=== PATIENT | male | born 1945 | race Caucasian/White ===

== ENCOUNTER 2018-01-03 08:14 | Inpatient (IN) | payer MEDICARE, BC ==
[2017-12-28 14:56] LABS: BASOPHILS % (AUTO) 0.6 % (0-1); EOSINOPHILS # (AUTO) 0.2 X10'3 (0-0.9); EOSINOPHILS % (AUTO) 3.6 % (0-6); LYMPHOCYTES # (AUTO) 1.5 X10'3 (1.1-4.8); LYMPHOCYTES % (AUTO) 22.8 % (21-51); MEAN CORPUSCULAR HEMOGLOBIN 32.9 PG (27.0-31.0); MEAN CORPUSCULAR HGB CONC 34.6 % (33.0-36.5); MEAN CORPUSCULAR VOLUME 95.1 FL (78-98); MEAN PLATELET VOLUME 8.6 FL (7.4-10.4); MONOCYTES # (AUTO) 0.6 X10'3 (0-0.9); MONOCYTES % (AUTO) 9.5 % (2-12); NEUTROPHILS # (AUTO) 4.2 X10'3 (1.8-7.7); NEUTROPHILS % (AUTO) 63.5 % (42-75); PRE OP HEMATOCRIT 43.2 % (42.0-52.0); PRE OP HEMOGLOBIN 14.9 g/dL (14.0-17.9); PRE OP PLATELET COUNT 172 X10'3 (140-440); RED BLOOD COUNT 4.54 X10'6 (4.70-6.10); RED CELL DISTRIBUTION WIDTH 13.7 % (11.5-14.5)
[2017-12-28 15:11] LABS: ALBUMIN 3.6 G/DL (3.4-5.0); ALBUMIN/GLOBULIN RATIO 1.1 (1.1-1.5); ALKALINE PHOSPHATASE 69 IU/L (46-116); BLOOD UREA NITROGEN 17 MG/DL (7-18); BUN/CREATININE RATIO 16.5 (5.4-32.0); CALCIUM 8.3 MG/DL (8.5-10.1); CHLORIDE 105 MMOL/L (99-107); CREATININE 1.03 MG/DL (0.60-1.10); PRE OP ALT 34 U/L (30-65); PRE OP ANION GAP 7 (8-16); PRE OP AST 22 U/L (10-37); PRE OP BILIRUB, TOTAL 0.4 MG/DL (0.0-1.0); PRE OP GLUCOSE 96 MG/DL (70-104); PRE OP POTASSIUM 3.7 MMOL/L (3.4-5.1); PRE OP SODIUM 143 MMOL/L (135-145); TOTAL CARBON DIOXIDE 31.3 MMOL/L (24-32); TOTAL PROTEIN 6.8 G/DL (6.4-8.2); eGFR 71 ML/MIN
[2017-12-28 15:17] LABS: CLARITY,URINE Clear (Clear); COLOR,URINE Yellow (Yellow); GLUCOSE, URINE Negative (Neg); KETONES,URINE Negative (Neg); LEUKOCYTE ESTERASE ,URINE Negative (Neg); NITRITES, URINE Negative (Neg); OCCULT BLOOD,URINE Negative (Neg); PROTEIN,URINE Negative (Neg); UROBILINOGEN,URINE 0.2 E.U/dL (0.2-1.0)
[2017-12-28 15:20] LABS: UA COLLECTION TYPE VOIDED
[2018-01-03] VITALS (18 sets, daily range): BP systolic 73–151; BP diastolic 47–102
[~2018-01-03] VITALS: Ht 185.4 cm; Wt 98.6 kg
[~2018-01-03 08:14] MED LIST: ATOR40TA PO; CARV-50 PO; DOCUMENT DATE & TIME OF BETA-BLOCKER PO ONE; FLO0.4C PO; LEVO25TA2 PO; POTA10TA10 PO; ROPIVAcaine 0.5% (5mg/ml) 30ml vial ONE; SACU1TAB7 PO; SPIR25TA3 PO; acetaminophen 325mg tablet PO ONE; cefazolin/dext.iso 2gm/50ml 50 ML IV ONE; celeCOXIB 100mg capsule PO ONE; cloNIDine hcl/PF 100mcg/ml inj ONE; epiNEPHrine 1 mg/ml inj ONE; famotidine 20mg tablet PO ONE; gabapentin 300mg capsule PO ONE; ketorolac trometh. 30mg/ml inj. ONE; metoclopramide 5 mg/ml inj IV ONE; oxyCODONE SR 10mg (sust. release) tab PO ONE; ringers solution, lacted 1,000 ML IV SCH; tranexamic acid inj. 1,000 MG in normal saline 100ml IV soln 90 ML IV ONE; vancomycin 1,000mg inj ONE; vancomycin inj 1,500 MG in normal saline 300ml IV soln IV ONE
[2018-01-03] MEDS ORDERED: metoclopramide 10mg tablet PO ONE (09:20)
[2018-01-03] MEDS ORDERED: AMLO1CAP9 PO (09:30)
[2018-01-03] MEDS: potassium cl 20mEq in 1/2 NS 1,000 ML IV SCH ×2 (09:43→18:09)
[2018-01-03] MEDS ORDERED: acetaminophen 325mg tablet PO PRN (09:45)
[2018-01-03] MEDS ORDERED: magnesium hydroxide 30ml (MOM) UD suspension PO PRN (09:45)
[2018-01-03] MEDS ORDERED: bisacodyl 10mg suppository rectal RC PRN (09:45)
[2018-01-03] MEDS ORDERED: diphenhydrAMINE 25mg capsule PO PRN ×2 (09:45)
[2018-01-03] MEDS ORDERED: HYDROmorphone 1 mg/ml syringe IV PRN ×2 (09:45)
[2018-01-03] MEDS ORDERED: ondansetron/PF 4mg/2ml inj IV PRN ×3 (09:45→11:00)
[2018-01-03] MEDS ORDERED: MORPHINE SULFATE/PF 0.5 MG/ML 10ML AMPUL ONE (09:56)
[2018-01-03] MEDS ORDERED: MIDAZolam 5mg/ml 2ml vial ONE (10:25)
[2018-01-03] MEDS ORDERED: propofol inj 20 ML IV ONE ×2 (10:25)
[2018-01-03] MEDS ORDERED: dexamethasone sod phosphate 4mg/ml inj. ONE (10:49)
[2018-01-03] MEDS ORDERED: BUPIVAcaine/PF 2.5 mg/ml (0.25%) 30ml vial ONE (10:49)
[2018-01-03] MEDS ORDERED: ringers solution, lacted 1,000 ML IV SCH (10:56)
[2018-01-03] MEDS ORDERED: naloxone 2mg/2ml inj 2 MG in normal saline 500ml IV soln 500 ML IV PRN (10:56)
[2018-01-03] MEDS ORDERED: diphenhydrAMINE 50 mg/ml inj IV PRN (11:00)
[2018-01-03] MEDS ORDERED: proCHLORperazine 10 MG/2 ml inj IV PRN (11:00)
[2018-01-03] MEDS ORDERED: meperidine/PF 50mg/ml syringe IV PRN ×3 (11:00)
[2018-01-03] MEDS ORDERED: morphine 2 MG/ML inj. syringe IV PRN ×2 (11:00)
[2018-01-03] MEDS: gabapentin 300mg capsule PO SCH ×2 (14:02→21:09)
[2018-01-03] MEDS: cefazolin/dext.iso 2gm/50ml 50 ML IV SCH ×2 (19:13→23:50)
[2018-01-03] MEDS: oxyCODONE/APAP 10/325mg tablet PO PRN (19:14)
[2018-01-03] MEDS: celeCOXIB 100mg capsule PO SCH (19:14)
[2018-01-03] MEDS: ascorbic acid 500mg tablet PO SCH (19:15)
[2018-01-03] MEDS: tamsulosin 0.4mg capsule PO SCH (19:15)
[2018-01-03] MEDS: carVEDilol 12.5mg tablet PO SCH (19:15)
[2018-01-03] MEDS: potassium Cl 20 mEq SR tablet PO SCH (20:00)
[2018-01-03] MEDS: sennosides 8.6mg tablet PO SCH (21:08)
[2018-01-03] MEDS: atorvastatin 20mg tablet PO SCH (21:08)
[2018-01-04 02:00] VITALS: BP 135/70
[2018-01-04] MEDS: potassium cl 20mEq in 1/2 NS 1,000 ML IV SCH ×3 (03:56→17:43)
[2018-01-04] MEDS: oxyCODONE/APAP 10/325mg tablet PO PRN ×5 (03:57→21:02)
[2018-01-04 05:00] VITALS: BP 144/77
[2018-01-04 05:37] LABS: ANION GAP 7 (8-16); CHLORIDE 105 MMOL/L (99-107); POTASSIUM 3.9 MMOL/L (3.5-5.1); SODIUM 141 MMOL/L (135-145); TOTAL CARBON DIOXIDE 29.1 MMOL/L (24-32)
[2018-01-04 05:39] LABS: BASOPHILS % (AUTO) 0.1 % (0-1); EOSINOPHILS # (AUTO) 0.1 X10'3 (0-0.9); EOSINOPHILS % (AUTO) 0.4 % (0-6); HEMATOCRIT 38.9 % (42.0-52.0); HEMOGLOBIN 13.4 g/dl (14.0-17.9); LYMPHOCYTES # (AUTO) 0.7 X10'3 (1.1-4.8); MEAN CORPUSCULAR HEMOGLOBIN 32.5 PG (27.0-31.0); MEAN CORPUSCULAR HGB CONC 34.4 % (33.0-36.5); MEAN CORPUSCULAR VOLUME 94.4 FL (78-98); MEAN PLATELET VOLUME 8.6 FL (7.4-10.4); MONOCYTES # (AUTO) 0.7 X10'3 (0-0.9); MONOCYTES % (AUTO) 5.9 % (2-12); NEUTROPHILS # (AUTO) 10.5 X10'3 (1.8-7.7); NEUTROPHILS % (AUTO) 87.6 % (42-75); PLATELET COUNT 158 X10'3 (140-440); RED BLOOD COUNT 4.12 X10'6 (4.70-6.10); RED CELL DISTRIBUTION WIDTH 13.5 % (11.5-14.5); WHITE BLOOD COUNT 11.9 X10'3 (4.5-11.0)
[2018-01-04] MEDS ORDERED: non-formulary drug (Amlodipine Besylate/Benazepril (Amlodipine-Benazepril 5-20 mg) 1 CAP) PO SCH (08:00)
[2018-01-04] MEDS: spironolactone 25 MG tablet PO SCH (08:32)
[2018-01-04] MEDS: celeCOXIB 100mg capsule PO SCH ×2 (08:32→21:01)
[2018-01-04] MEDS: lisinopril 20mg tablet PO SCH (08:33)
[2018-01-04] MEDS: potassium Cl 20 mEq SR tablet PO SCH ×2 (08:33→21:00)
[2018-01-04] MEDS: tamsulosin 0.4mg capsule PO SCH ×2 (08:33→21:01)
[2018-01-04] MEDS: gabapentin 300mg capsule PO SCH ×3 (08:33→21:00)
[2018-01-04] MEDS: amLODIPine 5mg tablet PO SCH (08:33)
[2018-01-04] MEDS: carVEDilol 12.5mg tablet PO SCH ×2 (08:33→21:00)
[2018-01-04] MEDS: multivitamins, therapeutics tablet PO SCH (08:34)
[2018-01-04] MEDS: ascorbic acid 500mg tablet PO SCH ×2 (08:34→21:00)
[2018-01-04] MEDS: aspirin 325mg tablet PO SCH (08:34)
[2018-01-04] MEDS: levoTHYROXINE 25mcg tablet PO SCH (08:43)
[2018-01-04 10:00] VITALS: BP 133/71
[2018-01-04 18:00] VITALS: BP 159/82
[2018-01-04] MEDS: atorvastatin 20mg tablet PO SCH (21:00)
[2018-01-04] MEDS: sennosides 8.6mg tablet PO SCH (21:01)
[2018-01-04 22:00] VITALS: BP 154/79
[2018-01-05] MEDS: potassium cl 20mEq in 1/2 NS 1,000 ML IV SCH (01:43)
[2018-01-05] MEDS: oxyCODONE/APAP 10/325mg tablet PO PRN ×2 (04:35→08:29)
[2018-01-05 05:00] VITALS: BP 146/73
[2018-01-05] MEDS ORDERED: ASPI-1 PO (06:25)
[2018-01-05 06:29] LABS: BASOPHILS % (AUTO) 0.2 % (0-1); EOSINOPHILS # (AUTO) 0.2 X10'3 (0-0.9); EOSINOPHILS % (AUTO) 2.1 % (0-6); MEAN CORPUSCULAR HEMOGLOBIN 32.6 PG (27.0-31.0); MEAN CORPUSCULAR HGB CONC 34.2 % (33.0-36.5); MEAN CORPUSCULAR VOLUME 95.4 FL (78-98); MONOCYTES # (AUTO) 1.1 X10'3 (0-0.9); MONOCYTES % (AUTO) 11.7 % (2-12); NEUTROPHILS # (AUTO) 7.2 X10'3 (1.8-7.7); PLATELET COUNT 143 X10'3 (140-440); RED BLOOD COUNT 3.67 X10'6 (4.70-6.10); RED CELL DISTRIBUTION WIDTH 13.3 % (11.5-14.5); WHITE BLOOD COUNT 9.5 X10'3 (4.5-11.0)
[2018-01-05] MEDS: spironolactone 25 MG tablet PO SCH (08:27)
[2018-01-05] MEDS: levoTHYROXINE 25mcg tablet PO SCH (08:28)
[2018-01-05] MEDS: lisinopril 20mg tablet PO SCH (08:28)
[2018-01-05] MEDS: multivitamins, therapeutics tablet PO SCH (08:28)
[2018-01-05] MEDS: tamsulosin 0.4mg capsule PO SCH (08:28)
[2018-01-05] MEDS: carVEDilol 12.5mg tablet PO SCH (08:28)
[2018-01-05] MEDS: aspirin 325mg tablet PO SCH (08:28)
[2018-01-05] MEDS: amLODIPine 5mg tablet PO SCH (08:28)
[2018-01-05] MEDS: ascorbic acid 500mg tablet PO SCH (08:28)
[2018-01-05] MEDS: celeCOXIB 100mg capsule PO SCH (08:28)
[2018-01-05] MEDS: gabapentin 300mg capsule PO SCH (08:29)
[2018-01-05] MEDS: potassium Cl 20 mEq SR tablet PO SCH (08:29)
== END 2018-01-05 09:45 | disposition home or self-care (01) | DRG 470 ==
LOC: PAS IN 08:14 → EDSTATUS 10:15 → ORTHO 4S 13:15
PROVIDERS: ADMIT Orthopaedic Surgery; ATTEND Orthopaedic Surgery
PROC: 3E0T3BZ Introduction of Anesthetic Agent into Peripheral Nerves and Plexi, Percutaneous Approach (ICD-10-PCS; 2018-01-03)
PROC: 0SRD0J9 Replacement of Left Knee Joint with Synthetic Substitute, Cemented, Open Approach (ICD-10-PCS; principal; 2018-01-03 09:46)
DX: M17.0 Bilateral primary osteoarthritis of knee (principal); D62 Acute posthemorrhagic anemia; E03.9 Hypothyroidism, unspecified; M70.62 Trochanteric bursitis, left hip; M76.891 Other specified enthesopathies of right lower limb, excluding foot; E78.5 Hyperlipidemia, unspecified; I10 Essential (primary) hypertension; N40.0 Benign prostatic hyperplasia without lower urinary tract symptoms; Z79.899 Other long term (current) drug therapy
CPT/HCPCS: 36415; 71046; 73560; 80051; 80053; 81003; 84443; 85025; 86885; 86900; 86901; 87070; 97116; 97161; 97530; A6455; A7000; C1713; C1758; C1776; J0171; J0690; J0735; J1100; J1885; J2250; J2274; J2405; J2704; J2795; J3370; J3490; J7030; J7120; J8597

== ENCOUNTER 2018-10-07 04:53 | Inpatient (IN) | payer MEDICARE, BC ==
[2018-10-07] VITALS (14 sets, daily range): BP systolic 109–184; BP diastolic 51–104
[~2018-10-07] VITALS: Ht 185.4 cm; Wt 98.0 kg
[~2018-10-07 04:53] MED LIST changes: +AMLO1CAP9 PO; +ASPI-1 PO; -DOCUMENT DATE & TIME OF BETA-BLOCKER PO ONE; -ROPIVAcaine 0.5% (5mg/ml) 30ml vial ONE; -SACU1TAB7 PO; -SPIR25TA3 PO; +SPIR25TA5 PO; -acetaminophen 325mg tablet PO ONE; -cefazolin/dext.iso 2gm/50ml 50 ML IV ONE; -celeCOXIB 100mg capsule PO ONE; -cloNIDine hcl/PF 100mcg/ml inj ONE; -epiNEPHrine 1 mg/ml inj ONE; -famotidine 20mg tablet PO ONE; -gabapentin 300mg capsule PO ONE; -ketorolac trometh. 30mg/ml inj. ONE; -metoclopramide 5 mg/ml inj IV ONE; -oxyCODONE SR 10mg (sust. release) tab PO ONE; -ringers solution, lacted 1,000 ML IV SCH; -tranexamic acid inj. 1,000 MG in normal saline 100ml IV soln 90 ML IV ONE; -vancomycin 1,000mg inj ONE; -vancomycin inj 1,500 MG in normal saline 300ml IV soln IV ONE
[2018-10-07 05:31] LABS: BASOPHILS % (AUTO) 0.1 % (0-1); EOSINOPHILS % (AUTO) 0.1 % (0-6); HEMATOCRIT 47.2 % (42.0-52.0); HEMOGLOBIN 15.9 g/dl (14.0-17.9); LYMPHOCYTES # (AUTO) 0.8 X10'3 (1.1-4.8); LYMPHOCYTES % (AUTO) 5.3 % (21-51); MEAN CORPUSCULAR HEMOGLOBIN 31.9 PG (27.0-31.0); MEAN CORPUSCULAR HGB CONC 33.7 % (33.0-36.5); MEAN CORPUSCULAR VOLUME 94.9 FL (78-98); MEAN PLATELET VOLUME 8.2 FL (7.4-10.4); MONOCYTES # (AUTO) 1.4 X10'3 (0-0.9); MONOCYTES % (AUTO) 9.7 % (2-12); NEUTROPHILS # (AUTO) 12.3 X10'3 (1.8-7.7); NEUTROPHILS % (AUTO) 84.8 % (42-75); PLATELET COUNT 192 X10'3 (140-440); RED BLOOD COUNT 4.97 X10'6 (4.70-6.10); RED CELL DISTRIBUTION WIDTH 13.2 % (11.5-14.5); WHITE BLOOD COUNT 14.5 X10'3 (4.5-11.0)
[2018-10-07] MEDS ORDERED: normal saline 1000ML IV soln IVB ONE (05:45)
[2018-10-07 05:48] LABS: ALANINE AMINOTRANSFERASE 52 U/L (12-78); ALBUMIN 3.4 G/DL (3.4-5.0); ALBUMIN/GLOBULIN RATIO 0.9 (1.1-1.5); ALKALINE PHOSPHATASE 72 IU/L (46-116); ANION GAP 10 (8-16); ASPARTATE AMINO TRANSFERASE 31 U/L (10-37); BILIRUBIN,TOTAL 1.1 MG/DL (0.1-1.0); BLOOD UREA NITROGEN 9 MG/DL (7-18); BUN/CREATININE RATIO 8.8 (5.4-32.0); CALCIUM 8.5 MG/DL (8.5-10.1); CHLORIDE 101 MMOL/L (99-107); CREATININE 1.02 MG/DL (0.60-1.10); GLUCOSE 143 MG/DL (70-104); POTASSIUM 3.3 MMOL/L (3.5-5.1); SODIUM 139 MMOL/L (135-145); TOTAL CARBON DIOXIDE 28.4 MMOL/L (24-32); eGFR 71 ML/MIN
[2018-10-07 05:49] LABS: INR 1.1 INR; PROTHROMBIN TIME 11.4 SECONDS (9.0-12.0)
[2018-10-07] MEDS ORDERED: potassium 10mEq/100ml NS w/LIDOcaine (10mg/bag) IV ONE (07:10)
[2018-10-07] MEDS ORDERED: piperacillin/tazo 3.375gm/50ml 50 ML IV ONE (07:10)
[2018-10-07] MEDS ORDERED: sincalide inj 2 MCG in normal saline 50ml IV soln 50 ML IV ONE (07:10)
[2018-10-07] MEDS ORDERED: potassium Cl 40MEQ/NS 500ml 500 ML IV PRN ×2 (08:40)
[2018-10-07] MEDS ORDERED: ondansetron/PF 4mg/2ml inj IV PRN ×3 (08:40→19:15)
[2018-10-07] MEDS ORDERED: HYDROcodone/acetaminophen 5mg/325mg tablet PO PRN (08:40)
[2018-10-07] MEDS ORDERED: morphine 2 MG/ML inj. syringe IV PRN (08:40)
[2018-10-07] MEDS ORDERED: magnesium hydroxide 30ml (MOM) UD suspension PO PRN (08:40)
[2018-10-07] MEDS ORDERED: HYDROcodone/acetaminophen 10/325mg tab PO PRN ×2 (08:40→19:15)
[2018-10-07] MEDS ORDERED: sincalide inj 0 MCG in normal saline 50ml IV soln 50 ML IV ONE (08:40)
[2018-10-07] MEDS ORDERED: acetaminophen 325mg tablet PO PRN ×2 (08:40)
[2018-10-07] MEDS ORDERED: magnesium Cl slow-release 64mg tablet PO PRN (08:40)
[2018-10-07] MEDS ORDERED: potassium Cl 20 mEq SR tablet PO PRN ×2 (08:40)
[2018-10-07] MEDS ORDERED: magnesium 4gm in 100ml NS 100 ML IV PRN (08:40)
[2018-10-07] MEDS ORDERED: mag hydrox/Alum hydrox/simeth 30ml oral suspension PO PRN (08:40)
[2018-10-07] MEDS: normal saline 1000ml 1,000 ML IV SCH ×3 (09:06→20:59)
[2018-10-07 09:51] LABS: CLARITY,URINE CLEAR (Clear); COLOR,URINE YELLOW (Yellow); GLUCOSE, URINE NEGATIVE (Neg); KETONES,URINE NEGATIVE (Neg); LEUKOCYTE ESTERASE ,URINE NEGATIVE (Neg); NITRITES, URINE NEGATIVE (Neg); OCCULT BLOOD,URINE NEGATIVE (Neg); PH,URINE 6.5 (4.8-8.0); PROTEIN,URINE NEGATIVE (Neg); UROBILINOGEN,URINE 0.2 E.U/dL (0.2-1.0)
[2018-10-07 09:52] LABS: UA COLLECTION TYPE CLN CATCH MIDSTREAM
[2018-10-07] MEDS: piperacillin/tazo 3.375gm/50ml 50 ML IV SCH ×2 (16:14→20:45)
[2018-10-07] MEDS ORDERED: BUPIVAcaine/PF 2.5mg/ml (0.25%) 10ml vial ONE (17:08)
[2018-10-07] MEDS ORDERED: sevoflurane 250ml liquid IH ONE (17:47)
[2018-10-07] MEDS ORDERED: metoprolol tartrate 1mg/ml inj IV ONE (17:47)
[2018-10-07] MEDS ORDERED: dexamethasone sod phosphate 10mg/ml inj ONE (17:47)
[2018-10-07] MEDS ORDERED: ringers solution, lacted 1,000 ML IV SCH (17:52)
[2018-10-07] MEDS ORDERED: fentaNYL/PF 50MCG/1 ML 2ML syringe ONE (17:54)
[2018-10-07] MEDS ORDERED: midazolam 2 mg/2 ml injection ONE (17:54)
[2018-10-07] MEDS ORDERED: meperidine/PF 25mg/ml syringe IV PRN ×3 (17:55)
[2018-10-07] MEDS ORDERED: proCHLORperazine 10 MG/2 ml inj IV PRN (17:55)
[2018-10-07] MEDS ORDERED: morphine 4 MG/ML inj SYRINge IV PRN ×2 (17:55)
[2018-10-07] MEDS ORDERED: LIDOcaine 2% (20mg/ml) 5ml vial ONE (17:56)
[2018-10-07] MEDS ORDERED: propofol inj 20 ML IV ONE (17:56)
[2018-10-07] MEDS ORDERED: rocuronium 10mg/ml inj IV ONE (17:58)
[2018-10-07] MEDS ORDERED: ondansetron/PF 4mg/2ml inj ONE (18:04)
[2018-10-07] MEDS ORDERED: ketorolac trometh. 30mg/ml inj. ONE (18:05)
[2018-10-07] MEDS ORDERED: enalaprilat dihydrate 2.5mg/2ml vial IV ONE (19:30)
[2018-10-07] MEDS: morphine 2 MG/ML inj. syringe IV PRN (20:29)
[2018-10-07] MEDS: atorvastatin 20mg tablet PO SCH (21:54)
[2018-10-07] MEDS: potassium Cl 20 mEq SR tablet PO SCH (21:55)
[2018-10-08] VITALS: BP 146/89
[2018-10-08] MEDS: morphine 2 MG/ML inj. syringe IV PRN ×2 (00:28→04:48)
[2018-10-08] MEDS: piperacillin/tazo 3.375gm/50ml 50 ML IV SCH ×3 (03:09→13:04)
[2018-10-08 04:30] VITALS: BP 158/99
[2018-10-08 05:27] LABS: BASOPHILS % (AUTO) 0 % (0-1); EOSINOPHILS % (AUTO) 0 % (0-6); HEMATOCRIT 43.7 % (42.0-52.0); HEMOGLOBIN 14.4 g/dl (14.0-17.9); LYMPHOCYTES # (AUTO) 0.5 X10'3 (1.1-4.8); LYMPHOCYTES % (AUTO) 3.9 % (21-51); MEAN CORPUSCULAR HEMOGLOBIN 31.4 PG (27.0-31.0); MEAN CORPUSCULAR HGB CONC 32.9 % (33.0-36.5); MEAN CORPUSCULAR VOLUME 95.3 FL (78-98); MEAN PLATELET VOLUME 8.9 FL (7.4-10.4); MONOCYTES # (AUTO) 0.5 X10'3 (0-0.9); MONOCYTES % (AUTO) 4.2 % (2-12); NEUTROPHILS # (AUTO) 11.1 X10'3 (1.8-7.7); NEUTROPHILS % (AUTO) 91.9 % (42-75); PLATELET COUNT 166 X10'3 (140-440); RED BLOOD COUNT 4.59 X10'6 (4.70-6.10); RED CELL DISTRIBUTION WIDTH 13.4 % (11.5-14.5); WHITE BLOOD COUNT 12.1 X10'3 (4.5-11.0)
[2018-10-08 05:29] LABS: ALANINE AMINOTRANSFERASE 90 U/L (12-78); ALBUMIN 2.8 G/DL (3.4-5.0); ALBUMIN/GLOBULIN RATIO 0.8 (1.1-1.5); ALKALINE PHOSPHATASE 58 IU/L (46-116); ANION GAP 10 (8-16); ASPARTATE AMINO TRANSFERASE 71 U/L (10-37); BILIRUBIN,TOTAL 0.8 MG/DL (0.1-1.0); BLOOD UREA NITROGEN 13 MG/DL (7-18); BUN/CREATININE RATIO 14.6 (5.4-32.0); CALCIUM 7.9 MG/DL (8.5-10.1); CHLORIDE 105 MMOL/L (99-107); CREATININE 0.89 MG/DL (0.60-1.10); GLUCOSE 122 MG/DL (70-104); MAGNESIUM 2.1 MG/DL (1.5-2.4); POTASSIUM 3.3 MMOL/L (3.5-5.1); SODIUM 143 MMOL/L (135-145); TOTAL CARBON DIOXIDE 27.8 MMOL/L (24-32); TOTAL PROTEIN 6.4 G/DL (6.4-8.2); eGFR 84 ML/MIN
[2018-10-08 07:30] VITALS: BP 160/83
[2018-10-08] MEDS: K and/or MAG REPLACEMENT MC SCH (08:00)
[2018-10-08] MEDS ORDERED: lisinopril 20mg tablet PO SCH (08:00)
[2018-10-08] MEDS: amLODIPine 5mg tablet PO SCH (08:51)
[2018-10-08] MEDS: spironolactone 25 MG tablet PO SCH (08:51)
[2018-10-08] MEDS: potassium Cl 20 mEq SR tablet PO SCH ×2 (08:51→19:56)
[2018-10-08] MEDS: levoTHYROXINE 25mcg tablet PO SCH (08:52)
[2018-10-08] MEDS: carVEDilol 12.5mg tablet PO SCH ×2 (08:52→19:56)
[2018-10-08] MEDS: tamsulosin 0.4mg capsule PO SCH ×2 (08:52→19:58)
[2018-10-08 11:00] VITALS: BP 168/90
[2018-10-08] MEDS: normal saline 1000ml 1,000 ML IV SCH (13:00)
[2018-10-08] MEDS: potassium cl 20mEq in 1/2 NS 1,000 ML IV SCH (19:38)
[2018-10-08] MEDS: levoFLOXACIN-Levaquin 500mg/D5 100 ML IV SCH (19:47)
[2018-10-08] MEDS: lisinopril 20mg tablet PO SCH (19:57)
[2018-10-08] MEDS: lactobacillus rhamnosus 10,000 MMU CELLS/CAPSULE PO SCH (19:58)
[2018-10-08 20:00] VITALS: BP 174/89
[2018-10-08 21:30] VITALS: BP 161/78
[2018-10-08] MEDS: atorvastatin 20mg tablet PO SCH (21:31)
[2018-10-08] MEDS: magnesium hydroxide 30ml (MOM) UD suspension PO SCH (22:28)
[2018-10-09] VITALS: BP 104/59
[2018-10-09 05:18] LABS: ALANINE AMINOTRANSFERASE 69 U/L (12-78); ALBUMIN 2.5 G/DL (3.4-5.0); ALBUMIN/GLOBULIN RATIO 0.7 (1.1-1.5); ALKALINE PHOSPHATASE 47 IU/L (46-116); ANION GAP 7 (8-16); ASPARTATE AMINO TRANSFERASE 38 U/L (10-37); BILIRUBIN,TOTAL 0.5 MG/DL (0.1-1.0); BLOOD UREA NITROGEN 12 MG/DL (7-18); BUN/CREATININE RATIO 14.3 (5.4-32.0); CHLORIDE 106 MMOL/L (99-107); CREATININE 0.84 MG/DL (0.60-1.10); GLUCOSE 108 MG/DL (70-104); MAGNESIUM 2.1 MG/DL (1.5-2.4); POTASSIUM 3.3 MMOL/L (3.5-5.1); SODIUM 142 MMOL/L (135-145); TOTAL CARBON DIOXIDE 29.3 MMOL/L (24-32); TOTAL PROTEIN 6.2 G/DL (6.4-8.2); eGFR 89 ML/MIN
[2018-10-09 07:40] VITALS: BP 168/87
[2018-10-09] MEDS: amLODIPine 5mg tablet PO SCH (07:45)
[2018-10-09] MEDS: spironolactone 25 MG tablet PO SCH (07:45)
[2018-10-09] MEDS: tamsulosin 0.4mg capsule PO SCH (07:45)
[2018-10-09] MEDS: carVEDilol 12.5mg tablet PO SCH (07:45)
[2018-10-09] MEDS: lactobacillus rhamnosus 10,000 MMU CELLS/CAPSULE PO SCH (07:45)
[2018-10-09] MEDS: levoTHYROXINE 25mcg tablet PO SCH (07:45)
[2018-10-09] MEDS: potassium Cl 20 mEq SR tablet PO SCH (07:46)
[2018-10-09] MEDS: lisinopril 20mg tablet PO SCH (07:46)
[2018-10-09] MEDS: levoFLOXACIN-Levaquin 500mg/D5 100 ML IV SCH (07:46)
[2018-10-09] MEDS: magnesium hydroxide 30ml (MOM) UD suspension PO SCH (07:46)
[2018-10-09] MEDS: K and/or MAG REPLACEMENT MC SCH (08:00)
[2018-10-09] MEDS: potassium cl 20mEq in 1/2 NS 1,000 ML IV SCH (08:18)
[2018-10-09 12:00] VITALS: BP 154/86
[2018-10-09] MEDS ORDERED: HYDR-4383 PO (12:59)
[2018-10-09] MEDS ORDERED: DOCU-28 PO (12:59)
[2018-10-09] MEDS ORDERED: LEVO500T2 PO (12:59)
== END 2018-10-09 15:00 | disposition home or self-care (01) | DRG 418 ==
LOC: ER 04:54 → ED HOLD 08:40 → EDBEDREQTM 09:13 → SUR 3N 10:56 → PACU 17:30 → SUR 3N 20:00
PROVIDERS: ADMIT Hospitalist; ATTEND Internal Medicine
PROC: 0WQF0ZZ Repair Abdominal Wall, Open Approach (ICD-10-PCS; 2018-10-07)
PROC: CF141ZZ Planar Nuclear Medicine Imaging of Gallbladder using Technetium 99m (Tc-99m) (ICD-10-PCS; 2018-10-07)
PROC: 0FT44ZZ Resection of Gallbladder, Percutaneous Endoscopic Approach (ICD-10-PCS; principal; 2018-10-07 17:47)
DX: K81.0 Acute cholecystitis (principal); K83.09 Other cholangitis; K42.9 Umbilical hernia without obstruction or gangrene; E03.9 Hypothyroidism, unspecified; E78.5 Hyperlipidemia, unspecified; E87.6 Hypokalemia; I10 Essential (primary) hypertension; N40.0 Benign prostatic hyperplasia without lower urinary tract symptoms; Z96.659 Presence of unspecified artificial knee joint; E66.9 Obesity, unspecified; Z79.899 Other long term (current) drug therapy; Z79.82 Long term (current) use of aspirin; Z68.28 Body mass index [BMI] 28.0-28.9, adult
CPT/HCPCS: 36415; 74018; 76700; 78226; 80053; 81003; 83605; 83735; 85025; 85610; 87040; 87070; 88302; 88304; 93005; 96360; 99285; A6251; A7000; A9537; G0378; J0690; J1100; J1885; J1956; J2001; J2250; J2270; J2405; J2543; J2704; J2805; J3010; J3480; J3490; J7030; J7040; J7120

== ENCOUNTER 2021-12-14 07:02 | Day surgery (SDC) | payer MEDICARE, BC ==
[2021-12-09 11:19] LABS: BASOPHILS % (AUTO) 0.7 % (0-1); EOSINOPHILS # (AUTO) 0.3 X10'3 (0-0.9); EOSINOPHILS % (AUTO) 6.3 % (0-6); LYMPHOCYTES # (AUTO) 0.5 X10'3 (1.1-4.8); LYMPHOCYTES % (AUTO) 10.6 % (21-51); MEAN CORPUSCULAR HEMOGLOBIN 32.6 PG (27.0-31.0); MEAN CORPUSCULAR HGB CONC 33.5 g/dL (33.0-36.5); MEAN CORPUSCULAR VOLUME 97.2 FL (78-98); MEAN PLATELET VOLUME 8.8 FL (7.4-10.4); MONOCYTES # (AUTO) 0.6 X10'3 (0-0.9); MONOCYTES % (AUTO) 10.6 % (2-12); NEUTROPHILS # (AUTO) 3.7 X10'3 (1.8-7.7); NEUTROPHILS % (AUTO) 71.8 % (42-75); PRE OP HEMATOCRIT 42.3 % (42.0-52.0); PRE OP HEMOGLOBIN 14.2 g/dL (14.0-17.9); PRE OP PLATELET COUNT 167 X10'3 (140-440); RED BLOOD COUNT 4.35 X10'6 (4.70-6.10); RED CELL DISTRIBUTION WIDTH 13.5 % (11.5-14.5)
[2021-12-09 11:49] LABS: ALBUMIN 3.6 G/DL (3.4-5.0); ALBUMIN/GLOBULIN RATIO 1.2 (1.1-1.5); ALKALINE PHOSPHATASE 48 IU/L (46-116); BLOOD UREA NITROGEN 20 MG/DL (7-18); BUN/CREATININE RATIO 16.3 (5.4-32.0); CALCIUM 9.1 MG/DL (8.5-10.1); CHLORIDE 106 MMOL/L (99-107); CREATININE 1.23 MG/DL (0.60-1.10); PRE OP ALT 29 U/L (30-65); PRE OP ANION GAP 7 (8-16); PRE OP AST 27 U/L (10-37); PRE OP BILIRUB, TOTAL 0.6 MG/DL (0.0-1.0); PRE OP GLUCOSE 79 MG/DL (70-104); PRE OP POTASSIUM 3.8 MMOL/L (3.4-5.1); PRE OP SODIUM 144 MMOL/L (135-145); TOTAL CARBON DIOXIDE 31.5 MMOL/L (24-32); TOTAL PROTEIN 6.5 G/DL (6.4-8.2); eGFR 57 ML/MIN
[2021-12-14] VITALS (20 sets, daily range): BP systolic 127–149; BP diastolic 80–95
[~2021-12-14] VITALS: Ht 185.4 cm; Wt 93.3 kg
[~2021-12-14 07:02] MED LIST changes: -AMLO1CAP9 PO; -ASPI-1 PO; +BUPIVAcaine/PF 2.5mg/ml (0.25%) 10ml vial ONE; +CALC200T PO; +DILT180C89 PO; +DOCUMENT DATE & TIME OF BETA-BLOCKER PO ONE; +ERGO400C PO; +LIDOcaine 1% 30ml preserv. free vial ONE; +MULT-227 PO; +OLME40TA13 PO; +OMEG-79 PO; +POTA-188 PO; -POTA10TA10 PO; +SAW450CA7 PO; +cefazolin/dext.iso 2gm/50ml IV ONE; +famotidine 20mg tablet PO ONE; +ringers solution, lacted 1,000 ML IV SCH
[2021-12-14] MEDS ORDERED: fentaNYL/PF 50MCG/1 ML 2ML syringe ONE (09:42)
[2021-12-14] MEDS ORDERED: midazolam 1 mg/ML 2ml injection ONE (09:42)
[2021-12-14] MEDS ORDERED: propofol inj 20 ML IV ONE (09:44)
[2021-12-14] MEDS ORDERED: proCHLORperazine 10 MG/2 ml inj IV PRN (10:25)
[2021-12-14] MEDS ORDERED: meperidine/PF 25mg/ml syringe IV PRN ×3 (10:25)
[2021-12-14] MEDS ORDERED: ondansetron/PF 4mg/2ml inj IV PRN (10:25)
[2021-12-14] MEDS ORDERED: morphine 2 MG/ML inj. syringe IV PRN (10:25)
[2021-12-14] MEDS ORDERED: ringers solution, lacted 1,000 ML IV SCH (10:25)
[2021-12-14] MEDS ORDERED: morphine 4 MG/ML inj SYRINge IV PRN (10:25)
[2021-12-14] MEDS ORDERED: ondansetron/PF 4mg/2ml inj ONE (11:03)
[2021-12-14] MEDS ORDERED: neostigmine methylsulfate 1 MG/ML 10ml vial ONE (11:03)
[2021-12-14] MEDS ORDERED: glycopyrrolate 0.2mg/ml inj ONE (11:03)
[2021-12-14] MEDS ORDERED: rocuronium 10mg/ml inj IV ONE (11:03)
[2021-12-14] MEDS ORDERED: dexamethasone sod phosphate 4mg/ml inj. ONE (11:03)
--- NOTE | 2021-12-14 11:26 | NUR ---
Received from OR via [facility], accompanied by Anesthesiologist DR CHIN and report given by Anesthesiologist AND OFFICE COPY SELECTOR. PT DROWSY, NO S/S OF DISTRESS/DISCOMFORT. ABDOMEN W/4 LAP SITES W/BANDAIDS CDI. Addendum: 12/14/21 at 1247 by Belle Vázquez RN Amended: Links added.
[2021-12-14] MEDS ORDERED: HYDROcodone/acetaminophen 5mg/325mg tablet PO PRN (11:40)
--- NOTE | 2021-12-14 14:00 | NUR ---
PT BLADDER SCANNED FOR 253 ML URINE, PT WISHES TO WAIT AND SEE IF HE CAN VOID. PT SENT BACK TO [facility] FOR D/C HOME FROM THERE, REPORT TO RECEIVING RN. Addendum: 12/14/21 at 1429 by Belle Vázquez RN Amended: Links added.
== END 2021-12-14 14:16 | disposition home or self-care (01) ==
LOC: PAS 07:02
PROVIDERS: ATTEND Surgery
DX: K43.2 Incisional hernia without obstruction or gangrene (principal); K40.20 Bilateral inguinal hernia, without obstruction or gangrene, not specified as recurrent; I10 Essential (primary) hypertension; E03.9 Hypothyroidism, unspecified; N40.0 Benign prostatic hyperplasia without lower urinary tract symptoms; M19.90 Unspecified osteoarthritis, unspecified site; Z20.822 Contact with and (suspected) exposure to COVID-19; Z90.49 Acquired absence of other specified parts of digestive tract; Z98.890 Other specified postprocedural states; Z96.659 Presence of unspecified artificial knee joint; Z79.899 Other long term (current) drug therapy; Z72.89 Other problems related to lifestyle; Z82.49 Family history of ischemic heart disease and other diseases of the circulatory system
CPT/HCPCS: 36415; 49560; 49568; 49650; 71046; 80053; 82948; 85025; C1781; J0690; J1100; J2250; J2405; J2704; J2710; J3010; J3490; J7030; J7120; U0003; U0005; Z7506; Z7508; Z7512; A4215; A4618; A7000

== ENCOUNTER 2023-01-10 15:06 | Outpatient (CLI) | payer MEDICARE, BC ==
[~2023-01-10 15:06] MED LIST changes: -BUPIVAcaine/PF 2.5mg/ml (0.25%) 10ml vial ONE; -DOCUMENT DATE & TIME OF BETA-BLOCKER PO ONE; -LIDOcaine 1% 30ml preserv. free vial ONE; -OLME40TA13 PO; +OLME40TA70 PO; -cefazolin/dext.iso 2gm/50ml IV ONE; -famotidine 20mg tablet PO ONE; -ringers solution, lacted 1,000 ML IV SCH
[2023-01-10 16:19] LABS: BASOPHILS # (AUTO) 0.1 X10'3 (0-0.2); BASOPHILS % (AUTO) 0.9 % (0-1); EOSINOPHILS # (AUTO) 0.2 X10'3 (0-0.9); EOSINOPHILS % (AUTO) 3.3 % (0-6); LYMPHOCYTES # (AUTO) 0.9 X10'3 (1.1-4.8); LYMPHOCYTES % (AUTO) 14.7 % (21-51); MEAN CORPUSCULAR HEMOGLOBIN 31.6 PG (27.0-31.0); MEAN CORPUSCULAR HGB CONC 32.9 g/dL (33.0-36.5); MEAN CORPUSCULAR VOLUME 96.1 FL (78-98); MEAN PLATELET VOLUME 7.9 FL (7.4-10.4); MONOCYTES # (AUTO) 0.6 X10'3 (0-0.9); MONOCYTES % (AUTO) 9.2 % (2-12); NEUTROPHILS # (AUTO) 4.5 X10'3 (1.8-7.7); NEUTROPHILS % (AUTO) 71.9 % (42-75); PRE OP HEMATOCRIT 44.9 % (42.0-52.0); PRE OP HEMOGLOBIN 14.8 g/dL (14.0-17.9); PRE OP PLATELET COUNT 165 X10'3 (140-440); RED BLOOD COUNT 4.67 X10'6 (4.70-6.10); RED CELL DISTRIBUTION WIDTH 14.8 % (11.5-14.5)
[2023-01-10 16:37] LABS: ALBUMIN 3.8 G/DL (3.4-5.0); ALBUMIN/GLOBULIN RATIO 1.1 (1.1-1.5); ALKALINE PHOSPHATASE 61 IU/L (46-116); BLOOD UREA NITROGEN 21 MG/DL (7-18); BUN/CREATININE RATIO 17.4 (5.4-32.0); CALCIUM 9.1 MG/DL (8.5-10.1); CHLORIDE 105 MMOL/L (99-107); CREATININE 1.21 MG/DL (0.60-1.10); PRE OP ALT 33 U/L (30-65); PRE OP ANION GAP 5 (8-16); PRE OP AST 28 U/L (10-37); PRE OP BILIRUB, TOTAL 0.5 MG/DL (0.0-1.0); PRE OP GLUCOSE 99 MG/DL (70-104); PRE OP POTASSIUM 4.2 MMOL/L (3.4-5.1); PRE OP SODIUM 140 MMOL/L (135-145); TOTAL CARBON DIOXIDE 29.6 MMOL/L (24-32); TOTAL PROTEIN 7.3 G/DL (6.4-8.2); eGFR 58 ML/MIN
[2023-01-10] MEDS ORDERED: VITAMIN D3 (16:41)
== END 2023-01-10 23:59 | disposition home or self-care (01) ==
LOC: PRE-OP 15:06 → EDSTATUS 01-19 08:45
PROVIDERS: ATTEND Orthopaedic Surgery
DX: Z01.812 Encounter for preprocedural laboratory examination (principal); I10 Essential (primary) hypertension; E03.9 Hypothyroidism, unspecified; I42.9 Cardiomyopathy, unspecified
CPT/HCPCS: 36415; 80053; 84443; 85025; 86885; 86900; 86901; 87081